=== PATIENT | female | born 1985 | race African-American/Black ===

== ENCOUNTER 2019-11-20 17:19 | Emergency (ER) | payer OTHER ==
[~2019-11-20] VITALS: Ht 154.9 cm; Wt 62.6 kg
--- NOTE | 2019-11-20 17:45 | NUR ---
ED Nurse Note: pt presents to ED with L shoulder blade pain. pt reports that she was boxing 2 days ago and might have pulled something. since then, under the L shoulder blade is painful when she lies down on it or lies on her stomach. pt has full ROM of L extremity.
[2019-11-20 17:47] VITALS: BP 121/86
[2019-11-20] MEDS ORDERED: Ketorolac 30mg Inj IM ONE (18:00)
[2019-11-20] MEDS ORDERED: Methocarbamol 750mg tab ORAL ONE (18:00)
--- NOTE | 2019-11-20 18:09 | Emergency Room Report ---
History of Present Illness General Chief Complaint: Upper Extremity Injury Source: Patient Present Illness HPI Disclaimer: Please note that this report is being documented using [employer]ippy technology. This can lead to erroneous entry secondary to incorrect interpretation by the dictating instrument. HPI: 33-year-old female no reported medical presents for evaluation of back pain. Patient states she boxes for exercise and believes she strained her back 3 days ago. She reports pain in the paraspinal region adjacent to the left scapula. Exacerbated by lifting the left arm greater than 90 degrees, bending and twisting motions and deep inspiration. Denies shortness of breath aside from when she feels a sudden pain in the back again triggered by deep inspiration. Denies chest pain or pressure otherwise. Denies back injury. Denies lightheadedness, palpitations, pain in the abdomen, nausea, vomiting, fever, chills, cough. Has been applying ice which seems to help and took Motrin once yesterday. PMH: Reviewed PSH: Reviewed Allergies: Reviewed Social Hx: Reviewed Allergies: Coded Allergies: No Known Allergies (Unverified , 11/20/19) COVID-19 Screening Contact w/high risk pt: No Experienced COVID-19 symptoms?: No COVID-19 Testing performed [employer] HELPER: No Patient History Last Menstrual Period: 10/17/2019 Now: No Review of Systems All Other Systems: negative except mentioned in HPI Physical Exam Vital Signs Date Time Temp Pulse Resp B/P (MAP) Pulse Ox O2 Delivery O2 Flow Rate FiO2 11/20/19 17:40 98.2 92 18 121/86 (98) 98 Room Air General: Awake and alert, no acute distress HEENT: NC/AT. EOMI. Resp: Normal work of breathing Skin: Intact. No abrasions, laceration or rash over the exposed skin MSK: Normal tone and bulk. Moving all extremities. No obvious deformity. When the left arm is abducted to 90 degrees there is tenderness to palpation over the medial border of the left scapula. There is no tenderness in the spine over the midline in the cervical, thoracic or lumbosacral spine. Neuro: Awake and alert. Mentating appropriately Medical Decision Making Diagnostic Impression: Primary Impression: Muscle strain of upper back ER Course Is a 33-year-old female presenting for evaluation of back pain. Differential includes was not limited to muscle strain, muscle spasm, pneumothorax, pneumonia, ACS. Very low suspicion for cardiac or pulmonary causes of this patient's presentation however EKG was ordered showed normal sinus rhythm without evidence of ischemia or strain. Chest x-ray shows normal cardiac silhouette, no pneumothorax, infiltrate, effusion or other abnormality. She is PERC negative. The patient was treated with pain medication, muscle relaxer, lidocaine patch and reported improvement. Her story and exam are most consis tent with a musculoskeletal cause of chest pain likely from working out too much. We will continue anti-inflammatories and muscle spasm reduction medications. Patient instructed to follow-up with PMD. Discussed reasons to return to the emergency department. She understands and agrees with the treatment plan. EKG Diagnostic Results EKG Time: 18:13 Rate: normal Rhythm: NSR ST Segments: no acute changes Other Impression Sinus rhythm, normal axis, normal intervals, no ST segment changes Rhythm Strip Diag. Results Rhythm Strip Time: 18:13 EP Interpretation: yes Rate: 80 Rhythm: NSR, no PVC's, no ectopy Chest X-Ray Diagnostic Results Chest X-Ray Diagnostic Results : Chest X-Ray Ordered: Yes # of Views/Limited/Complete: 1 View Indication: Other - Back pain EP Interpretation: Yes Interpretation: no consolidation, no effusion, no pneumothorax, no acute cardiopulmonary disease Impression: No acute disease Electronically Signed by: Electronically signed by Dr. Juan Murdock Last Vital Signs Date Time Temp Pulse Resp B/P (MAP) Pulse Ox O2 Delivery O2 Flow Rate FiO2 11/20/19 17:47 98.2 76 18 121/86 98 Room Air Disposition: HOME, SELF-CARE Condition: Stable Scripts Methocarbamol* (ROBAXIN-750*) 750 Mg Tablet 750 MG PO QID, #28 TAB 0 Refills Prov: Juan Murdock MD 11/20/19 Ibuprofen* (MOTRIN*) 600 Mg Tablet 600 MG ORAL Q6H PRN for For Pain, #30 TAB 0 Refills Prov: Juan Murdock MD 11/20/19 Lidocaine Patch* (Lidoderm Patch*) 1 Each Adh..patch 1 PATCH TOPIC DAILY, #7 PATCH 0 Refills Patch(es) may remain in place for up to 12 hours in any 24-hour period. Prov: Juan Murdock MD 11/20/19 Juan Murdock MD Nov 20, 2019 18:09
[2019-11-20] MEDS ORDERED: LIDODERM700 M1 TOPIC (18:32)
[2019-11-20] MEDS ORDERED: ROBAXIN-750750 MG PO (18:32)
[2019-11-20] MEDS ORDERED: IBUPROFEN600 M1 ORAL (18:32)
[2019-11-20 18:40] VITALS: BP 121/86
--- NOTE | 2019-11-20 18:40 | NUR ---
ER DISCHARGE NOTE: Patient is cleared to be discharged per ERMD, pt is aox4, on room air, with stable vital signs. pt was given dc and prescription instructions, pt was able to verbalize understanding, pt id band removed without complications. pt is able to ambulate with steady gait. pt took all belongings and left with significant other
[2019-11-20] MEDS ORDERED: HYDROcodone/Acetamin 7.5/325 tab ORAL ONE (18:45)
--- NOTE | 2019-11-20 19:12 | Diagnostic Imaging Report ---
Indication: Pain Technique: One view of the chest Comparison: none Findings: Lungs and pleural spaces are clear. Heart size is normal. Impression: No acute process
--- NOTE | 2019-11-21 13:54 | Cardiology Report ---
APPROVED REPORT EKG Measurement Heart [id number] <Conclusion> Normal sinus rhythm Normal ECG
== END 2019-11-20 18:40 | disposition home or self-care (01) ==
LOC: EMR 18:21
DX: S29.012A Strain of muscle and tendon of back wall of thorax, initial encounter (principal); Y93.71 Activity, boxing; R07.9 Chest pain, unspecified
CPT/HCPCS: 71045; 93005; 96372; 99283; J1885